=== PATIENT | female | born 1930 | race Caucasian/White ===

== ENCOUNTER 2016-10-16 23:00 | Emergency (ER) | payer MEDICARE, OTHER ==
[~2016-10-16 23:00] MED LIST: ALDACTAZID25 MG/25 M PO; ALTA2.5 PO; ALTA5 PO; ASAB PO; BACDS PO; C5 PO; FLECAINIDE50 MG PO; L20 PO; L40 PO; LEVAQUIN5T PO; LIPITOR10 PO; LIPITOR20 PO; MACROBID PO; NITROSTAT0.4 MG SL; OXYCOD PO; PCET PO; PHENERGAN (G25 MG/ML PO; PROTONIX PO; SPIRO25 PO; TAMBO50 PO; TOPXL25 PO; ULTRAM50 PO; ZOFRAN ODT4 MG PO
== END 2016-10-16 23:14 | disposition home or self-care (01) ==
LOC: ER 23:00
PROC: 09QKXZZ Repair Nasal Mucosa and Soft Tissue, External Approach (ICD-10-PCS; principal; 2016-10-16)
DX: S02.2XXA Fracture of nasal bones, initial encounter for closed fracture (principal); S01.21XA Laceration without foreign body of nose, initial encounter; S50.811A Abrasion of right forearm, initial encounter; I10 Essential (primary) hypertension; Z87.01 Personal history of pneumonia (recurrent); Z95.810 Presence of automatic (implantable) cardiac defibrillator; Z88.0 Allergy status to penicillin; Z88.2 Allergy status to sulfonamides; Z88.8 Allergy status to other drugs, medicaments and biological substances; Z79.82 Long term (current) use of aspirin; Z79.899 Other long term (current) drug therapy; W19.XXXA Unspecified fall, initial encounter
CPT/HCPCS: 70450; 70486; 72125; 90471; 90714; 99284; A9270-GY